=== PATIENT | male | born 1960 | race Native Hawaiian/Other Pacific Islander ===

== ENCOUNTER 2016-07-04 08:15 | Outpatient (CLI) | payer OTHER ==
[~2016-07-04 08:15] MED LIST: ALBU90AE13 INH; FLUTMIS6 INH; LEVO175T PO; PRED10TA27 PO; SPIRIVA INH
== END 2016-07-04 19:02 | disposition home or self-care (01) ==
LOC: RAD 08:15
DX: J44.9 Chronic obstructive pulmonary disease, unspecified (principal)

== ENCOUNTER 2017-04-21 14:30 | Outpatient (CLI) | payer OTHER | END 2017-04-21 20:04 | disposition home or self-care (01) | LOC: RAD 14:30 | DX: J44.1 Chronic obstructive pulmonary disease with (acute) exacerbation (principal) ==

== ENCOUNTER 2017-06-15 07:26 | Outpatient (CLI) | payer OTHER | END 2017-06-15 18:51 | disposition home or self-care (01) | LOC: RESP 07:26 | DX: R06.02 Shortness of breath (principal) | CPT/HCPCS: 94664 ==

== ENCOUNTER 2017-08-07 08:14 | Outpatient (CLI) | payer OTHER ==
[2017-08-07 09:29] LABS: PLATELET COUNT 181 K/uL (142-355)
[2017-08-07 09:49] LABS: POTASSIUM 3.9 mmol/L (3.6-5.2)
== END 2017-08-07 19:04 | disposition home or self-care (01) ==
LOC: LABW 08:14
PROVIDERS: Internal Medicine
DX: E78.00 Pure hypercholesterolemia, unspecified (principal); Z79.899 Other long term (current) drug therapy; Z51.81 Encounter for therapeutic drug level monitoring
CPT/HCPCS: 36415; 80053; 80061; 84439; 84443; 85027

== ENCOUNTER 2017-09-11 07:50 | Outpatient (CLI) | payer OTHER | END 2017-09-11 19:13 | disposition home or self-care (01) | LOC: CT 07:50 | DX: R06.02 Shortness of breath (principal); Z87.891 Personal history of nicotine dependence ==

== ENCOUNTER 2017-10-15 08:16 | Outpatient (CLI) | payer OTHER ==
[2017-10-15 08:29] LABS: PLATELET COUNT 184 K/uL (142-355)
== END 2017-10-15 23:17 | disposition home or self-care (01) ==
LOC: LABW 08:16
PROVIDERS: Internal Medicine
DX: E03.9 Hypothyroidism, unspecified (principal); D64.9 Anemia, unspecified
CPT/HCPCS: 36415; 84439; 84443; 85027

== ENCOUNTER 2017-12-02 08:43 | Outpatient (CLI) | payer OTHER | END 2017-12-02 20:56 | disposition home or self-care (01) | LOC: CT 08:43 | DX: J44.9 Chronic obstructive pulmonary disease, unspecified (principal) ==

== ENCOUNTER 2018-04-28 11:43 | Outpatient (CLI) | payer OTHER ==
[2018-04-28 12:03] LABS: PLATELET COUNT 228 K/uL (142-355)
[2018-04-28 13:08] LABS: POTASSIUM 4.3 mmol/L (3.6-5.2)
== END 2018-04-28 23:12 | disposition home or self-care (01) ==
LOC: LABW 11:43
PROVIDERS: Internal Medicine
DX: J44.9 Chronic obstructive pulmonary disease, unspecified (principal); I10 Essential (primary) hypertension; E03.9 Hypothyroidism, unspecified; E78.00 Pure hypercholesterolemia, unspecified; Z12.5 Encounter for screening for malignant neoplasm of prostate
CPT/HCPCS: 36415; 80053; 80061; 81000; 84153; 84439; 84443; 85027

== ENCOUNTER 2018-10-19 10:12 | Outpatient (CLI) | payer OTHER ==
[2018-10-19 10:45] LABS: PLATELET COUNT 230 K/uL (142-355)
[2018-10-19 11:03] LABS: POTASSIUM 3.3 mmol/L (3.6-5.2)
== END 2018-10-19 20:16 | disposition home or self-care (01) ==
LOC: LABW 10:12
PROVIDERS: Internal Medicine
DX: I10 Essential (primary) hypertension (principal); E03.8 Other specified hypothyroidism; J44.9 Chronic obstructive pulmonary disease, unspecified; R06.02 Shortness of breath
CPT/HCPCS: 36415; 80053; 80061; 81000; 83880; 84439; 84443; 85027

== ENCOUNTER 2018-11-03 08:51 | Outpatient (CLI) | payer OTHER ==
[2018-11-03 09:38] LABS: PLATELET COUNT 204 K/uL (142-355)
== END 2018-11-03 20:16 | disposition home or self-care (01) ==
LOC: LABW 08:51
PROVIDERS: Internal Medicine
DX: D64.89 Other specified anemias (principal); E53.8 Deficiency of other specified B group vitamins; D64.9 Anemia, unspecified
CPT/HCPCS: 36415; 82272; 82607; 82728; 82747; 83540; 83550; 85027

== ENCOUNTER 2018-12-03 08:04 | Outpatient (CLI) | payer OTHER | END 2018-12-03 21:52 | disposition home or self-care (01) | LOC: CT 08:04 | DX: Z87.891 Personal history of nicotine dependence (principal); J44.9 Chronic obstructive pulmonary disease, unspecified ==